=== PATIENT | female | born 1975 | race Caucasian/White ===

== ENCOUNTER 2023-08-05 12:27 | Emergency (ER) | payer BC, SELFPAY ==
[2023-08-05] MEDS ORDERED: Acetaminophen 500 MG TAB ONE (12:39)
[2023-08-05 13:27] LABS: SARS-CoV-2 NAA Rapid Test Not Detected (NotDetected)
== END 2023-08-05 14:43 | disposition home or self-care (01) ==
LOC: ERS 12:27
DX: J10.1 Influenza due to other identified influenza virus with other respiratory manifestations (principal); Z20.822 Contact with and (suspected) exposure to COVID-19
CPT/HCPCS: 99283